=== PATIENT | male | born 1955 ===

== ENCOUNTER 2024-09-15 06:10 | Day surgery (SDC) | payer MEDICARE, OTHER, SELFPAY ==
--- NOTE | 2024-07-28 09:52 | CM ---
CM reviewed medical records. CM spoke with patient's who was available for IA. Patient lives independently with . Patient does have a history of VN, but is currently not on service. Patient does not have a history of SNF> Patient has a
cane. CM went over [facility] DME list and encouraged patient's to call to make arrangements to purchase required equipment. CM explained that [facility] will be calling to make arrangements for same day visit. Patient is known to [facility] in [place] and
plans to follow up with them after [facility] has discharged patient.
Patient is active with his PCP. Patient has medication coverage.
PLAN: home with [facility] , [facility].
--- NOTE | 2024-09-01 14:22 | VNURNOTE ---
Patient is scheduled for an elective L TKA on 09/15 - he is a same day patient with Dr Freeman. Spoke with patient's spouse prior to surgery. Introduced role of [facility] Liaison.
PCP Dr Michael Abel
Discussed [facility] joint protocol and post surgical plans.
Reviewed that he will have VN services initially and will then start outpatient PT.
Selected [facility] for his home care needs and will go to [facility] for outpatient PT. Scheduled for 09/18.
Patient's spouse is in agreement with plan and she will be home with him post op. Advised to bring RW with him day of surgery. Referral placed in [facility].
Plan: [facility] per [facility] joint protocol 09/15 then outpt PT on 09/18
[2024-09-02 14:09] VITALS: BMI 28.6
[2024-09-02 14:32] LABS: Hematocrit 41.7 % (39.0-52.0); Hemoglobin 14.3 g/dL (13.0-18.0); Mean Corp Hgb Conc. 34.3 g/dL (33.0-37.0); Mean Corpuscular Volume 90.5 fL (80.0-94.0); Platelet Count 246 10^3/uL (130-400); Red Cell Dist. Width 12.0 % (11.5-14.5)
[2024-09-02 14:53] LABS: ALT (SGPT) 19 U/L (0-50); AST (SGOT) 20 U/L (17-59); Albumin 4.6 g/dl (3.5-5.0); Alkaline Phosphatase 77 U/L (38-126); Blood Urea Nitrogen 24 mg/dl (9-20); Calcium 10.0 mg/dl (8.4-10.2); Carbon Dioxide 25 mmol/L (22-30); Chloride 106 mmol/L (98-107); Estimated Creatinine Clearance 73 ml/min; Glucose 101 mg/dl (70-99); Potassium 4.8 mmol/L (3.5-5.1); Sodium 139 mmol/L (135-145); Total Protein 7.4 g/dl (6.3-8.2); eGFR > 60.00
[2024-09-02 15:38] VITALS: BMI 28.6
[2024-09-03 10:49] LABS: Glycohemoglobin (HgbA1c) 5.8 % (4.0-5.6)
--- NOTE | 2024-09-12 14:08 | W.PN.UPDATE ---
Update Note
Progress Note Update
Per patient, pain mgmt (Dali Yancye PA-C) advised he stick with the Oxycodone 15 mg q6hprn for moderate-severe post-surgical pain.
He picked up 135 tabs on 09/05 for a 30 day supply.
He is aware to call Dali Yancey for further pain mgmt should this medication be ineffective.
[2024-09-15] VITALS (11 sets, daily range): BP systolic 134–156; BP diastolic 81–93; BMI 28.6
[2024-09-15] MEDS: NORMOSOL-R/PLASMALYTE-A 1000 IV ×2 (06:51→10:01)
[2024-09-15] MEDS: TYLENOL 650 MG PO (06:52)
[2024-09-15] MEDS: CELEBREX 200 MG PO (06:52)
--- NOTE | 2024-09-15 07:10 | W.DS.TRANS ---
DC Summary - [employer]
-
Discharge Instructions:
Sleep Apnea Risk Low
Discharge Diagnosis/Procedures L TOMASA Freeman 09/15/24
Diet As tolerated
Activity With Walker
Driving Restrictions No driving
Bathing Restrictions OK to Shower
Other Services PT
Instructions:
Stand-Alone Forms: SDS Total Hip and Knee D/C
Changes to Home Medications: Yes
Discharge Medications:
DC Medications w/original date entered in [employer]
Ageless Max Male 2 cap PO DAILY 09/02/24
Held on 09/15/24. Instructions: Resume on 09/23/24.
Nugenix Supplement 2 cap PO DAILY 09/02/24
Held on 09/15/24. Instructions: Resume on 09/23/24.
albuterol sulfate 90 mcg/actuation aerosol inhaler 2 puff inhalation Q6H PRN SOB 09/02/24
atorvastatin 20 mg tablet 20 mg PO DAILY 09/02/24
celecoxib 200 mg capsule (Celebrex) 200 mg PO DAILY #14 caps 09/02/24
cholecalciferol (vitamin D3) 25 mcg (1,000 unit) tablet (Vitamin D3) 25 mcg PO DAILY 09/02/24
dexamethasone 4 mg tablet 4 mg PO BID Anti-inflammatory #7 tabs 09/02/24
escitalopram oxalate 20 mg tablet (Lexapro) 20 mg PO DAILY 09/02/24
esomeprazole magnesium 20 mg capsule,delayed release (Nexium) 20 mg PO DAILY 09/02/24
gabapentin 300 mg capsule 300 mg PO HS neuropathic pain/sleep #10 caps 09/02/24
glucosamine-chondroitin 250 mg-200 mg tablet 2 tab PO DAILY 09/02/24
Held on 09/15/24. Instructions: Resume on 09/23/24.
magnesium 250 mg tablet 250 mg PO DAILY 09/02/24
multivitamin 1 tab PO DAILY 09/02/24
mupirocin 2 % topical ointment 1 applic intranasal BID #1 tube 09/02/24
ondansetron HCl 4 mg tablet 4 mg PO Q6H PRN nausea and vomiting #30 tabs 09/02/24
turmeric root extract 500 mg capsule 500 mg PO DAILY 09/02/24
Held on 09/15/24. Instructions: Resume on 09/23/24.
vit C 250 mg-vit E 90 mg-zinc 40 mg-copper 1 op-vfihog-lfqoia capsule (PreserVision AREDS-2) 1 tab PO DAILY 09/02/24
Held on 09/15/24. Instructions: Resume on 09/23/24.
vitamin E (dl, acetate) 450 mg (1,000 unit) capsule 450 mg PO DAILY 09/02/24
Held on 09/15/24. Instructions: Resume on 09/23/24.
aspirin 325 mg tablet 325 mg PO DAILY blood clot prevention #1 tab 09/14/24
docusate sodium 100 mg capsule (Colace) 100 mg PO BID stool softner #1 cap 09/14/24
magnesium hydroxide 400 mg/5 mL oral suspension (Milk of Magnesia) 30 ml PO HS PRN constipation #1 mL 09/14/24
sennosides 8.6 mg tablet (Senokot) 17.2 mg (2 x 8.6 mg) PO BID laxative #2 tabs 09/14/24
oxycodone 15 mg tablet 15 mg PO Q4HPRN PRN moderate-severe pain #0 tabs 09/15/24
Home Medication Changes
celecoxib 200 mg capsule (Celebrex) 200 mg PO DAILY #14 caps 09/02/24
dexamethasone 4 mg tablet 4 mg PO BID Anti-inflammatory #7 tabs 09/02/24
aspirin 325 mg tablet 325 mg PO DAILY blood clot prevention #1 tab 09/14/24
docusate sodium 100 mg capsule (Colace) 100 mg PO BID stool softner #1 cap 09/14/24
magnesium hydroxide 400 mg/5 mL oral suspension (Milk of Magnesia) 30 ml PO HS PRN constipation #1 mL 09/14/24
sennosides 8.6 mg tablet (Senokot) 17.2 mg (2 x 8.6 mg) PO BID laxative #2 tabs 09/14/24
Pending Results: No
[2024-09-15] MEDS: ROXICODONE PO (10:36)
[2024-09-15] MEDS: CYKLOKAPRON 650 MG PO (10:37)
[2024-09-15] MEDS: ROXICODONE 5 MG PO (10:41)
[2024-09-15] MEDS: ANCEF 5 IV (11:22)
== END 2024-09-15 12:00 | disposition home or self-care (01) ==
LOC: SDS 06:10
PROVIDERS: ATTENDING PHYSICIAN Specialist; FAMILY PHYSICIAN Family Medicine; OTHER PHYSICIAN Physician Assistant
DX: M17.12 Unilateral primary osteoarthritis, left knee (principal); Z87.891 Personal history of nicotine dependence; I25.10 Atherosclerotic heart disease of native coronary artery without angina pectoris
CPT/HCPCS: 27447; 36415; 73560; 80053; 83036; 85027; 87070; 97162; C1713; C1776